=== PATIENT | female | born 1985 ===

== ENCOUNTER 2020-05-01 14:00 | Inpatient (IN) | payer OTHER ==
[~2020-05-01] VITALS: Ht 162.6 cm; Wt 81.6 kg
== END 2020-05-11 19:20 | disposition home or self-care (01) | DRG 331 ==
LOC: SURH 05-09 05:55 → O/R 05-09 05:55 → SURH 05-09 07:00
PROVIDERS: ADMIT Colon & Rectal Surgery; ATTEND Colon & Rectal Surgery
PROC: 0DJD8ZZ Inspection of Lower Intestinal Tract, Via Natural or Artificial Opening Endoscopic (ICD-10-PCS; 2020-05-09)
PROC: 0DBN4ZZ Excision of Sigmoid Colon, Percutaneous Endoscopic Approach (ICD-10-PCS; principal; 2020-05-09 07:00)
DX: K57.32 Diverticulitis of large intestine without perforation or abscess without bleeding (principal); Z20.822 Contact with and (suspected) exposure to COVID-19

== ENCOUNTER 2022-07-10 07:53 | Day surgery (SDC) | payer OTHER ==
[~2022-07-10] VITALS: Ht 162.6 cm; Wt 71.2 kg
== END 2022-07-10 15:20 | disposition home or self-care (01) ==
LOC: CIR.AMB 07:53
PROVIDERS: ATTEND Colon & Rectal Surgery
DX: K64.4 Residual hemorrhoidal skin tags (principal); K64.8 Other hemorrhoids; K57.32 Diverticulitis of large intestine without perforation or abscess without bleeding; Z20.822 Contact with and (suspected) exposure to COVID-19